=== PATIENT | male | born 1990 | race Caucasian/White ===

== ENCOUNTER 2018-09-03 08:04 | Emergency (ER) | payer SELFPAY ==
[2018-09-03] MEDS ORDERED: Sodium Chloride 0.9% 1,000 ML IV ONE (08:17)
[2018-09-03] MEDS ORDERED: Ketorolac 30 MG/ML SDV IVPUSH ONE (08:17)
[2018-09-03] MEDS ORDERED: Ondansetron 4 MG/2 ML SDV IVPUSH ONE (08:17)
--- NOTE | 2018-09-03 08:18 | EDM.PDOC ---
ED HPI GENERAL MEDICAL PROBLEM - General Chief Complaint: Abdominal Pain Stated Complaint: UPPER RT SIDE HURTS Time Seen by Provider: 09/03/18 08:18 Source of Information: Reports: Patient - History of Present Illness INITIAL COMMENTS - FREE TEXT/NARRATIVE: HISTORY AND PHYSICAL: History of present illness: [Patient presents with right upper quadrant pain 8 out of 10 on arrival after eating greasy food. Patient has had similar symptoms in the past 2 years prior , as of recent he has been having more intermittent symptoms Fever vomiting chills sweats ] Review of systems: As per history of present illness and below otherwise all systems reviewed and negative. Past medical history: As per history of present illness and as reviewed below otherwise noncontributory. Surgical history: As per history of present illness and as reviewed below otherwise noncontributory. Social history: No reported history of drug or alcohol abuse. Family history: As per history of present illness and as reviewed below otherwise noncontributory. Physical exam: HEENT: Atraumatic, normocephalic, pupils reactive, negative for conjunctival pallor or scleral icterus, mucous membranes moist, throat clear, neck supple, nontender, trachea midline. Lungs: Clear to auscultation, breath sounds equal bilaterally, chest nontender. Heart: S1S2, regular, negative for clicks, rubs, or JVD. Abdomen: Soft, nondistendtender in the right upper quadrant on deep palpation no guarding or rebound tive for masses or hepatosplenomegaly. Negative for costovertebral tenderness. Pelvis: Stable nontender. Genitourinary: Deferred. Rectal: Deferred. Extremities: Atraumatic, negative for cords or calf pain. Neurovascular unremarkable. Neuro: Awake, alert, oriented. Cranial nerves II through XII unremarkable. Cerebellum unremarkable. Motor and sensory unremarkable throughout. Exam nonfocal. Diagnostics: [CBC CMP UA lipase CT abdomen pelvis with contrast ] Therapeutics: [Normal saline Toradol Zofran Cipro Preston Zofran Follow-up jejunal surgery for HIDA scan consideration ] Impression Abdominalpain -improved Definitive disposition and diagnosis as appropriate pending reevaluation and review of above. right upper quad Pain Score (Numeric/FACES): 7 - Related Data Allergies Allergy/AdvReac Type Severity Reaction Status Date / Time Penicillins Allergy Anaphylactic Verified 09/03/18 08:18 Shock Home Meds: Home Meds . [No Known Home Meds] 09/03/18 [History] ED ROS GENERAL - Review of Systems Review Of Systems: See Below ED EXAM, GENERAL - Physical Exam Exam: See Below Course - Vital Signs Last Recorded V/S: Last Vital Signs Temp 96.8 F 09/03/18 08:15 Pulse 85 09/03/18 08:15 Resp 18 09/03/18 08:15 BP 121/87 09/03/18 08:15 Pulse Ox 97 09/03/18 08:15 - Orders/Labs/Meds Labs: Laboratory Tests 09/03/18 09/03/18 09/03/18 Range/Units 08:25 08:25 08:37 WBC 13.51 H (4.0-11.0) K/uL RBC 5.54 (4.50-5.90) M/uL Hgb 16.7 (13.0-17.0) g/dL Hct 49.1 (38.0-50.0) % MCV 88.6 (80.0-98.0) fL MCH 30.1 (27.0-32.0) pg MCHC 34.0 (31.0-37.0) g/dL RDW Std Deviation 43.1 (28.0-62.0) fl RDW Coeff of Sultana 13 (11.0-15.0) % Plt Count 283 (150-400) K/uL MPV 10.40 (7.40-12.00) fL Add Manual Diff YES Neutrophils % (Manual) 44 L (48.0-80.0) % Band Neutrophils % 3 % Lymphocytes % (Manual) 42 H (16.0-40.0) % Monocytes % (Manual) 6 (0.0-15.0) % Eosinophils % (Manual) 4 (0.0-7.0) % Basophils % (Manual) 1 (0.0-1.5) % Nucleated RBC % 0.0 /100WBC Absolute Seg Neuts 5.9 H (1.4-5.7) Band Neutrophils # 0.4 Lymphocytes # (Manual) 5.7 H (0.6-2.4) Monocytes # (Manual) 0.8 (0.0-0.8) Eosinophils # (Manual) 0.5 (0.0-0.7) Basophils # (Manual) 0.1 (0.0-0.1) Nucleated RBCs # 0 K/uL Sodium 141 (136-148) mmol/L Potassium 3.5 (3.5-5.1) mmol/L Chloride 104 (98-107) mmol/L Carbon Dioxide 26.0 (21.0-32.0) mmol/L BUN 15 (7.0-18.0) mg/dL Creatinine 1.0 (0.8-1.3) mg/dL Est Cr Clr Drug Dosing 96.59 mL/min Estimated GFR (MDRD) > 60.0 ml/min Glucose 100 (74-106) mg/dL Calcium 9.0 (8.5-10.1) mg/dL Total Bilirubin 0.3 (0.2-1.0) mg/dL AST 22 (15-37) IU/L ALT 60 (14-63) IU/L Alkaline Phosphatase 85 (46-116) U/L Total Protein 7.9 (6.4-8.2) g/dL Albumin 3.9 (3.4-5.0) g/dL Globulin 4.0 (2.6-4.0) g/dL Albumin/Globulin Ratio 1.0 (0.9-1.6) Lipase 88 (73-393) U/L Urine Color YELLOW Urine Appearance CLEAR Urine pH 6.0 (5.0-8.0) Ur Specific [place] >= 1.030 (1.001-1.035) Urine Protein NEGATIVE (NEGATIVE) mg/dL Urine Glucose (UA) NEGATIVE (NEGATIVE) mg/dL Urine Ketones NEGATIVE (NEGATIVE) mg/dL Urine Occult Blood NEGATIVE (NEGATIVE) Urine Nitrite NEGATIVE (NEGATIVE) Urine Bilirubin NEGATIVE (NEGATIVE) Urine Urobilinogen 0.2 (<2.0) EU/dL Ur Leukocyte Esterase NEGATIVE (NEGATIVE) Meds: Medications Discontinued Medications Generic Name Dose Route Start Last Admin Trade Name Freq PRN Reason Stop Dose Admin Sodium Chloride 1,000 mls @ 999 mls/hr 09/03/18 08:17 09/03/18 08:32 Normal Saline IV 09/03/18 09:17 999 mls/hr STAT ONE Administration Iopamidol 100 ml 09/03/18 10:09 09/03/18 10:10 Isovue-370 (76%) IVPUSH 09/03/18 10:10 100 ml ONETIME ONE Administration Ketorolac Tromethamine 30 mg 09/03/18 08:17 09/03/18 08:32 Toradol IVPUSH 09/03/18 08:18 30 mg ONETIME ONE Administration Ondansetron HCl 8 mg 09/03/18 08:17 09/03/18 08:32 Zofran IVPUSH 09/03/18 08:18 8 mg ONETIME ONE Administration Departure - Departure Time of Disposition: 10:34 Disposition: Home, Self-Care 01 Condition: Good Clinical Impression: Abdominal pain - Discharge Information Referrals: PCP,None [Primary Care Provider] - Forms: ED Department Discharge Additional Instructions: Medication as prescribed Weston diet as discussed Return if symptoms persist or woren Follow-up with general surgery, ER referral provided to be seen this week for consideration of HIDA scan [facility] - [facility] [address], [address] [place] [address] The following information is given to patients seen in the emergency department who are being discharged to home. This information is to outline your options for follow-up care. We provide all patients seen in our emergency department with a follow-up referral. The need for follow-up, as well as the timing and circumstances, are variable depending upon the specifics of your emergency department visit. If you don't have a primary care physician on staff, we will provide you with a referral. We always advise you to contact your personal physician following an emergency department visit to inform them of the circumstance of the visit and for follow-up with them and/or the need for any referrals to a consulting specialist. The emergency department will also refer you to a specialist when appropriate. This referral assures that you have the opportunity for follow-up care with a specialist. All of these measure are taken in an effort to provide you with optimal care, which includes your follow-up. Under all circumstances we always encourage you to contact your private physician who remains a resource for coordinating your care. When calling for follow-up care, please make the office aware that this follow-up is from your recent emergency room visit. If for any reason you are refused follow-up, please contact the [facility] emergency department at and asked to speak to the emergency department charge nurse.
--- NOTE | 2018-09-03 09:25 | US ---
EXAMINATION: Right upper quadrant ultrasound HISTORY: Pain COMPARISON: None TECHNIQUE: Grayscale and color Doppler imaging obtained. FINDINGS: The visualized pancreas appears normal. The liver is moderately increased in generalized echotexture without a focal hepatic mass. Gallbladder wall thickness is normal. No pericholecystic fluid or shadowing gallstones. The right kidney measures approximately 13.5 cm [id number] without evidence of hydronephrosis. There is likely a horseshoe configuration. IMPRESSION: 1. At least moderate fatty infiltration of the liver. 2. 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
[2018-09-03 09:29] LABS: CHLORIDE,CL 104 mmol/L (98-107); SODIUM,NA 141 mmol/L (136-148)
[2018-09-03] MEDS ORDERED: Iopamidol 755 Mg/ML 100 ML Bottle IVPUSH ONE (10:09)
--- NOTE | 2018-09-03 10:23 | CT ---
CT of the abdomen and pelvis with contrast. HISTORY: Pain TECHNIQUE: Axial CT images were obtained of the abdomen and pelvis following administration of 100 mL of Isovue-370 in the left antecubital fossa without complication. Coronal and sagittal reconstructions obtained. FINDINGS: The lung bases are clear, no pleural effusion. The liver, spleen, adrenal glands, and pancreas appear normal. The gallbladder is normal. No bulky retroperitoneal lymphadenopathy or abdominal ascites. There is a horseshoe kidney noted without evidence of obstructive uropathy. There are however a few tiny calcifications projecting along the course of the left ureter however appear to be located along the periphery without significant proximal hydronephrosis. The large and small bowel are normal in caliber without evidence of obstruction. No focal pericolonic inflammation or stranding. The appendix is normal. There is no bulky pelvic lymphadenopathy or free pelvic fluid. The urinary bladder is normal. No suspicious osseous abnormalities identified. IMPRESSION: 1. Possible punctate calcifications within the mid left ureter without significant hydronephrosis. 2. Horseshoe kidney. 3. Otherwise no acute findings noted within the abdomen or pelvis.
== END 2018-09-03 10:54 | disposition home or self-care (01) ==
LOC: MW.ED 08:04
DX: R10.11 Right upper quadrant pain (principal); Z88.0 Allergy status to penicillin
CPT/HCPCS: 36415; 74177; 76705; 80053; 81003; 83690; 85025; 96361; 96374; 96375; 99284; J1885; J2405; J7040; Q9967